=== PATIENT | male | born 1970 | race Caucasian/White ===

== ENCOUNTER → 2021-09-17 | Outpatient (CLI) | payer BC ==
--- NOTE | 2021-09-17 14:02 | CONS ---
CONSULTATION DATE OF SERVICE: 09/17/2021 This 50-year-old gentleman has been evaluated in [facility] for possible obstructive sleep apnea-hypopnea syndrome. HISTORY OF PRESENT ILLNESS/SLEEP-WAKE EVALUATION: Patient's usual sleep schedule on weekdays is from 8 p.m. to 4 a.m. and on weekends from 8 p.m. to 6 a.m. No problems with falling asleep. No TV in bedroom. Patient usually sleeps on the side position. He snores very loudly and according to his has episodes of stopped breathing during sleep. The patient wakes up from sleep up to 6 times with nocturia and dry mouth. In the morning the patient wakes up tired, has difficulties paying attention, falling asleep during the day, has episodes of irritability. [place] Sleepiness Scale increased to 13. No history of hypnagogic hallucinations, sleep paralysis or cataplexy. PAST MEDICAL HISTORY: Positive for acid reflux. MEDICATIONS: None. SOCIAL HISTORY: Negative for smoking. Alcohol consumption occasional. FAMILY HISTORY: Sleep apnea, snoring. REVIEW OF SYSTEMS: Multiple awakenings from sleep, sleepiness during the day, loud snoring. No fevers. No double vision. No recent chest pain. No shortness of breath. No abdominal pain. No bleeding episodes. No blood in the urine. No seizure episodes. PHYSICAL EXAMINATION: GENERAL: Pleasant gentleman without distress. VITAL SIGNS: BP 105/72, HR 82, RR 16, height 5 feet 11-1/2 inches, weight 306.4 pounds, body mass index 42.0, temperature 97.0, oxygen saturation at room air 98%. HEENT: PERRLA, EOMI, evaluation of oropharynx showed tongue protrudes midline. Extremely low position of soft palate; Mallampati IV. NECK: Supple, no JVD. Thyroid is not palpable. Neck is wide, 19-3/4 inches in circumference. LUNGS: Clear to percussion and to auscultation. Good air exchange. No wheezing or rhonchi. HEART: S1, S2 regular. No murmurs, gallops, or rubs. ABDOMEN: Obese. EXTREMITIES: No clubbing or cyanosis. SAFETY ANALYST: Awake, alert, and oriented X3. Cranial nerves 2 to 7 intact. There is no fasciculation or atrophy. noted. No focal deficits observed. IMPRESSION: 1. Loud snoring, witnessed episodes of stopped breathing during sleep, extremely low position of soft palate, Mallampati IV, wide neck, 19-3/4 inches in circumference; obstructive sleep apnea-hypopnea syndrome. 2. Sleepiness. [place] Sleepiness Scale increased to 13. 3. Obesity; BMI 42. 4. History of acid reflux. PLAN: 1. Home sleep apnea test for evaluation of patient's breathing during sleep. 2. CPAP/BiPAP titration if sleep study confirms obstructive sleep apnea-hypopnea syndrome. 3. Preferable position during sleep on the side. 4. No driving if patient feels any sleepiness. 5. I will see patient for follow up visit to explain results of testing and following plan. Thank you very much for referring this patient for consultation. Sincerely, Isra Linares MD, PhD, FAASM Diplomat of [place] [employer] Sleep Medicine Board of [place] [employer] Nuclear Scientist of [facility] [place] MMODL / IJN: [id number] /
== END ==
LOC: SLEEP 13:05
PROVIDERS: ATTEND Internal Medicine
DX: G47.33 Obstructive sleep apnea (adult) (pediatric) (principal); E66.9 Obesity, unspecified; K21.9 Gastro-esophageal reflux disease without esophagitis; Z68.41 Body mass index [BMI] 40.0-44.9, adult
CPT/HCPCS: 99202

== ENCOUNTER → 2022-01-01 | Outpatient (CLI) | payer BC ==
--- NOTE | 2022-01-01 16:26 | P.PN ---
Subjective DATE: [] FOLLOW UP VISIT. Patient with obstructive sleep apnea hypopnea syndrome return to sleep center for follow-up visit. Recently patient had sleep study which documented obstructive sleep apnea hypopnea syndrome. Patient was initiated on PAP therapy and today is first visit after treatment was started. I discussed results of sleep studies with patient in details. Patient was able to use PAP equipment every night for the whole night. The patient does not have significant problems with the mask, PAP pressure and humidification. [place] sleepiness scale is 0. After starting treatment with BiPAP the patient significantly improved his condition, no sleepiness during the day, sleeps well during the night. I checked information from PAP unit. PAP unit pressure maximal inspiratory pressure 18, minimal expiratory pressure at 10 cm of water cm H2O. Usage is 100 % for more then 4 hours, average 7.2 hours per night. Leak is 26.8 l/m, which is in acceptable range. Apnea Hypopnea Index is 2.4, which is normal. During physical exam: GENERAL: A pleasant patient without any distress. VITAL SIGNS: BP [], HR [], RR[] , weight[], temperature [], oxygen saturation at room air[] . HEENT: PERRLA, EOMI.low position of soft palate, Mallapati[] . NECK: Supple. No JVD. LUNGS: Clear to percussion and to auscultation. Good air exchange. No wheezing or rhonchi. HEART: S1, S2 regular. ABDOMEN: Soft and nontender.[] EXTREMITIES: No clubbing or cyanosis. NONPROFIT FINANCIAL CONTROLLER: Awake, alert, and oriented x3. No focal deficit. Impressions: 1. Obstructive sleep apnea-hypopnea syndrome in extremely severe range. Apnea hypopnea index during the sleep study 104 with oxygen desaturation to 56%. Patient demonstrated great compliance with treatment, benefiting from treatment. Normal respiration on BiPAP. 2. Obesity. 3. History of acid reflux. Plan: 1. Continue using PAP equipment every night for the whole night. 2. To change air filter at least 1-2 times per month. 3. PAP unit should stay lower then position of the head. 4. Advised patient to remove all remaining water from humidifier canister daily and make it dry after each usage. Refill canister with fresh distilled water before each usage. 5. Sleep hygiene with regular time in bed for at least 8 hours. 6. Precautions related to driving. No driving if feel any sleepiness. 7. I will maintain prescription for PAP supplies including mask, tube, filters. 8. Follow up visit in 6 months or earlier if patient has any problems. 9. Watching weight. Thank you very much for allowing me to participate in the management of your patient. Isra Linares MD, PhD, FAASM. Diplomat of [place] [employer] [employer], Sleep Medicine Board by [place] [employer] [facility] [place]
== END ==
LOC: SLEEP 15:57
PROVIDERS: ATTEND Internal Medicine
DX: G47.33 Obstructive sleep apnea (adult) (pediatric) (principal); G47.36 Sleep related hypoventilation in conditions classified elsewhere; Z99.89 Dependence on other enabling machines and devices; E66.9 Obesity, unspecified; Z87.19 Personal history of other diseases of the digestive system

== ENCOUNTER 2023-05-27 02:16 | Emergency (ER) | payer BC ==
[2023-05-27] MEDS ORDERED: KETOROLAC 15 MG/ML 1 ML VIAL IVP STA (04:13)
[2023-05-27] MEDS ORDERED: PANTOPRAZOLE 40 MG/10 ML VIAL IVP STA (04:13)
[2023-05-27] MEDS ORDERED: SODIUM CHLORIDE 0.9% 1,000 ML IV STA (04:13)
[2023-05-27] MEDS ORDERED: MORPHINE SULFATE 4 MG/ML SYRINGE IVP STA (04:16)
--- NOTE | 2023-05-27 04:19 | ED ---
Abdominal Pain HPI - General Source: patient, RN notes reviewed, old records reviewed Mode of arrival: ambulatory Limitations: no limitations - History of Present Illness MD Complaint: abdominal pain -: days(s) Location: diffuse Radiation: epigastric, suprapubic, bilateral flank Migration to: epigastric, suprapubic Severity: moderate Severity scale (1-10): 7 Quality: aching Consistency: constant, intermittent Worsens With: nothing Associated Symptoms: constipation Treatments Prior to Arrival: other (0) <Chris Martin - Last Filed: 05/27/23 05:20> <Yanira Schwab - Last Filed: 06/01/23 00:08> - General Chief Complaint: Abdominal Pain Stated Complaint: Abdominal Pain, Lowerback Pain Time Seen by Provider: 05/27/23 03:30 - History of Present Illness Initial Comments: This is a 52-year-old male to the emergency department for evaluation today. This patient presents today for evaluation regards to, pain significant abdominal pain with decreased bowel movements the last few days. No fevers mild nausea no vomiting. (Chris Martin) - Related Data Allergies Allergy/AdvReac Type Severity Reaction Status Date / Time No Known Allergies Allergy Verified 05/27/23 02:30 Review of Systems ROS Other: All systems not noted in ROS Statement are negative. <Chris Martin - Last Filed: 05/27/23 05:20> ROS Other: All systems not noted in ROS Statement are negative. <Yanira Schwab - Last Filed: 06/01/23 00:08> ROS Statement: Those systems with pertinent positive or pertinent negative responses have been documented in the HPI. Past Medical History Past Medical History: No Reported History History of Any Multi-Drug Resistant Organisms: None Reported Past Surgical History: No Surgical Hx Reported Past Psychological History: No Psychological Hx Reported Smoking Status: Never smoker Past Alcohol Use History: None Reported Past Drug Use History: None Reported <Chris Martin - Last Filed: 05/27/23 05:20> General Exam Limitations: no limitations General appearance: alert, in no apparent distress Head exam: Present: atraumatic, normocephalic, normal inspection Eye exam: Present: normal appearance, PERRL, EOMI. Absent: scleral icterus, conjunctival injection, periorbital swelling ENT exam: Present: normal exam, mucous membranes moist Neck exam: Present: normal inspection. Absent: tenderness, meningismus, lymphadenopathy Respiratory exam: Present: normal lung sounds bilaterally. Absent: respiratory distress, wheezes, rales, rhonchi, stridor Cardiovascular Exam: Present: regular rate, normal rhythm, normal heart sounds. Absent: systolic murmur, diastolic murmur, rubs, gallop, clicks GI/Abdominal exam: Present: soft, normal bowel sounds. Absent: distended, tenderness, guarding, rebound, rigid Extremities exam: Present: normal inspection, full ROM, normal capillary refill. Absent: tenderness, pedal edema, joint swelling, calf tenderness Back exam: Present: normal inspection Neurological exam: Present: alert, oriented X3, CN II-XII intact Psychiatric exam: Present: normal affect, normal mood Skin exam: Present: warm, dry, intact, normal color. Absent: rash <Chris Martin - Last Filed: 05/27/23 05:20> Course <Chris Martin - Last Filed: 05/27/23 05:20> Vital Signs 05/27/23 05/27/23 05/27/23 02:27 05:44 07:48 Temperature 98.1 F 98.8 F Pulse Rate 56 L 54 L 51 L Respiratory 18 18 17 Rate Blood Pressure 142/82 150/74 122/75 O2 Sat by Pulse 98 99 97 Oximetry - Reevaluation(s) Reevaluation #1: 05/27/23 05:20 Medical records reviewed (Chris Martin) Reevaluation #2: 05/27/23 05:20 Patient symptoms are improving (Chris Martin) Reevaluation #4: 05/27/23 05:20 Was pt. sent in by a medical professional or institution (, PA, ONLINE MARKETING MANAGER, urgent care, hospital, or retirement...) When possible be specific @ -no Did you speak to anyone other than the patient for history (EMS, parent, family, police, friend...)? What history was obtained from this source @ -no Did you review nursing and triage notes (agree or disagree)? Why? @ -agree Are old charts reviewed (outside hosp., previous admission, EMS record, old EKG, old radiological studies, urgent care reports/EKG's, retirement records)? Report findings @ -yes Differential Diagnosis (chest pain, altered mental status, abdominal pain women, abdominal pain men, vaginal bleeding, weakness, fever, dyspnea, syncope, headache, dizziness, GI bleed, back pain, seizure, CVA, palpatations, mental health, musculoskeletal)? @ -prior EKG interpreted by me (3pts min.). @ -yes X-rays interpreted by me (1pt min.). @ -yes CT interpreted by me (1pt min.). @ -no U/S interpreted by me (1pt. min.). @ -no What testing was considered but not performed or refused? (CT, X-rays, U/S, labs)? Why? @ -none What meds were considered but not given or refused? Why? @ -none Did you discuss the management of the patient with other professionals (professionals i.e. , PA, ONLINE MARKETING MANAGER, lab, RT, psych nurse, social service liaison, chute man, teacher, founder and chief technical officer, machine adjuster leader case trim)? Give summary @ -no Was smoking cessation discussed for >3mins.? @ -no Was critical care preformed (if so, how long)? @ -no Were there social determinants of health that impacted care today? How? (Homel essness, low income, unemployed, alcoholism, drug addiction, transportation, low edu. Level, literacy, decrease access to med. care, custodial, rehab)? @ -none Was there de-escalation of care discussed even if they declined (Discuss DNR or withdrawal of care, Hospice)? DNR status @ -no What co-morbidities impacted this encounter? (DM, HTN, Smoking, COPD, CAD, Cancer, CVA, ARF, Chemo, Hep., AIDS, mental health diagnosis, sleep apnea, morbid obesity)? @ -none Was patient admitted / discharged? Hospital course, mention meds given and route, prescriptions, significant lab abnormalities, going to OR and other pertinent info. @ - Undiagnosed new problem with uncertain prognosis? @ -no Drug Therapy requiring intensive monitoring for toxicity (Heparin, Nitro, Insulin, Cardizem)? @ -no Were any procedures done? @ -no Diagnosis/symptom? @ - Acute, or Chronic, or Acute on Chronic? @ -Acute Uncomplicated (without systemic symptoms) or Complicated (systemic symptoms)? @ -Complicated Side effects of treatment? @ -no Exacerbation, Progression, or Severe Exacerbation? @ -exacerbation Poses a threat to life or bodily function? How? (Chest pain, USA, IA, pneumonia, PE, COPD, DKA, ARF, appy, cholecystitis, CVA, Diverticulitis, Homicidal, Suicidal, threat to staff... and all critical care pts) @ -yes (Chris Martin) Reevaluation #5: 05/27/23 05:20 Differential Abdominal Pain Men: Appendicitis, cholecystitis, diverticulosis, ischemic bowel, pancreatitis, hepatitis, UTI, gastroenteritis, AAA, incarcerated hernia, bowel obstruction, constipation, inflammatory bowel, hepatitis, peptic ulcer disease, splenic infarction, perforated viscus, testicular torsion, this is not meant to be an all-inclusive list (Chris Martin) Medical Decision Making - Lab Data Result diagrams: 05/27/23 04:30 05/27/23 04:30 <Chris Martin - Last Filed: 05/27/23 05:20> - Lab Data Result diagrams: 05/27/23 04:30 05/27/23 04:30 <Yanira Schwab - Last Filed: 06/01/23 00:08> - Medical Decision Making Was patient admitted / discharged? Hospital course, mention meds given and route, prescriptions, significant lab abnormalities, going to OR and other pertinent info. @ -Patient signed out to me from Dr. Martin. Patient is pain-free upon my evaluation. CT demonstrates lew mesentery and constipation. I discussed the results with Dr. Daniel. He states that the patient is stable for discharge home. He will follow up with him in office. She was given magnesium citrate in order to help move his bowels. He has any new or worsening symptoms he should return sooner. Patient agreeable to the plan was discharged in stable condition Undiagnosed new problem with uncertain prognosis? @ -No Drug Therapy requiring intensive monitoring for toxicity (Heparin, Nitro, Insulin, Cardizem)? @ -No Were any procedures done? @ -No Diagnosis/symptom? @ -Acute abdominal pain, acute constipation, possible mesenteric adenitis Acute, or Chronic, or Acute on Chronic? @ -Acute Uncomplicated (without systemic symptoms) or Complicated (systemic symptoms)? @ -Complicated Side effects of treatment? @ -No Exacerbation, Progression, or Severe Exacerbation? @ -No Poses a threat to life or bodily function? How? (Chest pain, USA, IA, pneumonia, PE, COPD, DKA, ARF, appy, cholecystitis, CVA, Diverticulitis, Homicidal, Suicidal, threat to staff... and all critical care pts) @ -No (Yanira Schwab) - Lab Data Lab Results 05/27/23 05/27/23 05/27/23 Range/Units 04:30 04:30 04:30 WBC 10.9 H (3.8-10.6) k/uL RBC 5.01 (4.30-5.90) m/uL Hgb 15.4 (13.0-17.5) gm/dL Hct 45.9 (39.0-53.0) % MCV 91.7 (80.0-100.0) fL MCH 30.7 (25.0-35.0) pg MCHC 33.5 (31.0-37.0) g/dL RDW 12.9 (11.5-15.5) % Plt Count 325 (150-450) k/uL MPV 7.4 Neutrophils % 67 % Lymphocytes % 23 % Monocytes % 5 % Eosinophils % 2 % Basophils % 1 % Neutrophils # 7.3 (1.3-7.7) k/uL Lymphocytes # 2.5 (1.0-4.8) k/uL Monocytes # 0.6 (0-1.0) k/uL Eosinophils # 0.3 (0-0.7) k/uL Basophils # 0.1 (0-0.2) k/uL Sodium 138 (137-145) mmol/L Potassium 4.3 (3.5-5.1) mmol/L Chloride 104 (98-107) mmol/L Carbon Dioxide 25 (22-30) mmol/L Anion Gap 9 mmol/L BUN 16 (9-20) mg/dL Creatinine 0.84 (0.66-1.25) mg/dL Est GFR (CKD-EPI)AfAm >90 (>60 ml/min/1.73 sqM) Est GFR (CKD-EPI)NonAf >90 (>60 ml/min/1.73 sqM) Glucose 103 H (74-99) mg/dL Plasma Lactic Acid Angelo (0.7-2.0) mmol/L Calcium 9.2 (8.4-10.2) mg/dL Total Bilirubin 0.5 (0.2-1.3) mg/dL AST 29 (17-59) U/L ALT 24 (4-49) U/L Alkaline Phosphatase 57 (38-126) U/L Total Protein 7.5 (6.3-8.2) g/dL Albumin 4.2 (3.5-5.0) g/dL Amylase 51 (30-110) U/L Lipase 62 (23-300) U/L Urine Color Light Yellow Urine Appearance Clear (Clear) Urine pH 5.5 (5.0-8.0) Ur Specific [place] 1.023 (1.001-1.035) Urine Protein Negative (Negative) Urine Glucose (UA) Negative (Negative) Urine Ketones Negative (Negative) Urine Blood Negative (Negative) Urine Nitrite Negative (Negative) Urine Bilirubin Negative (Negative) Urine Urobilinogen <2.0 (<2.0) mg/dL Ur Leukocyte Esterase Negative (Negative) 05/27/23 Range/Units 04:30 WBC (3.8-10.6) k/uL RBC (4.30-5.90) m/uL Hgb (13.0-17.5) gm/dL Hct (39.0-53.0) % MCV (80.0-100.0) fL MCH (25.0-35.0) pg MCHC (31.0-37.0) g/dL RDW (11.5-15.5) % Plt Count (150-450) k/uL MPV Neutrophils % % Lymphocytes % % Monocytes % % Eosinophils % % Basophils % % Neutrophils # (1.3-7.7) k/uL Lymphocytes # (1.0-4.8) k/uL Monocytes # (0-1.0) k/uL Eosinophils # (0-0.7) k/uL Basophils # (0-0.2) k/uL Sodium (137-145) mmol/L Potassium (3.5-5.1) mmol/L Chloride (98-107) mmol/L Carbon Dioxide (22-30) mmol/L Anion Gap mmol/L BUN (9-20) mg/dL Creatinine (0.66-1.25) mg/dL Est GFR (CKD-EPI)AfAm (>60 ml/min/1.73 sqM) Est GFR (CKD-EPI)NonAf (>60 ml/min/1.73 sqM) Glucose (74-99) mg/dL Plasma Lactic Acid Angelo 1.0 (0.7-2.0) mmol/L Calcium (8.4-10.2) mg/dL Total Bilirubin (0.2-1.3) mg/dL AST (17-59) U/L ALT (4-49) U/L Alkaline Phosphatase (38-126) U/L Total Protein (6.3-8.2) g/dL Albumin (3.5-5.0) g/dL Amylase (30-110) U/L Lipase (23-300) U/L Urine Color Urine Appearance (Clear) Urine pH (5.0-8.0) Ur Specific [place] (1.001-1.035) Urine Protein (Negative) Urine Glucose (UA) (Negative) Urine Ketones (Negative) Urine Blood (Negative) Urine Nitrite (Negative) Urine Bilirubin (Negative) Urine Urobilinogen (<2.0) mg/dL Ur Leukocyte Esterase (Negative) Disposition <Chris Martin - Last Filed: 05/27/23 05:20> Is patient prescribed a controlled substance at d/c from ED?: No Time of Disposition: 08:24 <Yanira Schwab - Last Filed: 06/01/23 00:08> Clinical Impression: Abdominal pain, Constipation, Hiatal hernia, Diverticula, colon Disposition: HOME SELF-CARE Condition: Stable Instructions (If sedation given, give patient instructions): Abdominal Pain (ED) Additional Instructions: I did discuss your CAT scan findings with Dr. Daniel. Please follow-up with him in office in regards to those findings. Drink half the bottle of the magnesium citrate. If you do not have a bowel movement within 4 hours, drink the second half. Return for any new or worsening symptoms Referrals: None,Stated [Primary Care Provider] - 1-2 days Raymundo Daniel MD [Medical Doctor] - 1-2 days
[2023-05-27 04:39] LABS: Basophils # (A) 0.1 k/uL (0-0.2); Basophils % (A) 1 %; Eosinophils # (A) 0.3 k/uL (0-0.7); Eosinophils % (A) 2 %; HCT 45.9 % (39.0-53.0); HGB 15.4 gm/dL (13.0-17.5); Lymphocytes # (A) 2.5 k/uL (1.0-4.8); Lymphocytes % (A) 23 %; MCH 30.7 pg (25.0-35.0); MCHC 33.5 g/dL (31.0-37.0); MCV 91.7 fL (80.0-100.0); Mean Platelet Volume 7.4; Monocytes # (A) 0.6 k/uL (0-1.0); Monocytes % (A) 5 %; Neutrophils # (A) 7.3 k/uL (1.3-7.7); Neutrophils % (A) 67 %; Platelet Count 325 k/uL (150-450); RBC 5.01 m/uL (4.30-5.90); RDW 12.9 % (11.5-15.5); WBC 10.9 k/uL (3.8-10.6)
[2023-05-27 04:47] LABS: ALT 24 U/L (4-49); AST 29 U/L (17-59); African American GFR (CKD) >90 (>60 ml/min/1.73 sqM); Albumin 4.2 g/dL (3.5-5.0); Alkaline Phosphatase 57 U/L (38-126); Amylase 51 U/L (30-110); Anion Gap 9 mmol/L; Blood Urea Nitrogen 16 mg/dL (9-20); Calcium 9.2 mg/dL (8.4-10.2); Carbon Dioxide 25 mmol/L (22-30); Chloride 104 mmol/L (98-107); Glucose 103 mg/dL (74-99); Lipase 62 U/L (23-300); Non-African American GFR(CKD) >90 (>60 ml/min/1.73 sqM); Potassium 4.3 mmol/L (3.5-5.1); Sodium 138 mmol/L (137-145); Total Bilirubin 0.5 mg/dL (0.2-1.3); Total Protein 7.5 g/dL (6.3-8.2)
[2023-05-27 05:07] LABS: Appearance,Urine Clear (Clear); Bilirubin,Urine Negative (Negative); Blood,Urine Negative (Negative); Color,Urine Light Yellow; Glucose,Urine (UA) Negative (Negative); Ketones,Urine Negative (Negative); Leukocyte Esterase,Urine Negative (Negative); Nitrite,Urine Negative (Negative); PH, Urine 5.5 (5.0-8.0); Protein,Urine Negative (Negative); Specific Gravity,Urine 1.023 (1.001-1.035); Urobilinogen,Urine <2.0 mg/dL (<2.0)
--- NOTE | 2023-05-27 07:20 | XR ---
EXAMINATION TYPE: XR KUB DATE OF EXAM: 05/27/2023 2:45 AM CLINICAL INDICATION:Male, 52 years old with history of constipation; COMPARISON: None. TECHNIQUE: One radiographic view of the abdomen was obtained. FINDINGS: Mild to moderate amount of stool throughout the colon. The bowel gas pattern is nonspecific without dilated loops of small or large bowel. There is no evidence for organomegaly or pneumoperito neum. The osseous structures are intact. No abnormal calcifications are present. Fecal material and gas are demonstrated throughout the colon and rectum. Degeneration changes throughout the spine with scoliosis. IMPRESSION: [id number] stool burden: Nonspecific bowel gas pattern without radiographic evidence for acute process.
--- NOTE | 2023-05-27 07:32 | CT ---
EXAMINATION TYPE: CT abdomen pelvis w con CT DLP: 2482 mGycm, Automated exposure control for dose reduction was used. DATE OF EXAM: 05/27/2023 4:55 AM COMPARISON: KUB 05/27/2023 CLINICAL INDICATION:Male, 52 years old with history of abdominal pain; TECHNIQUE: Axial CT of the ;CT abdomen pelvis w con;Sagittal and coronal reformats were created on a separate workstation. Contrast used: 100 cc Isovue-300 (none if empty) Oral contrast used: (none if empty) FINDINGS: LOWER CHEST: Atherosclerosis of the coronary arteries. The ABDOMEN LIVER: Unremarkable GALLBLADDER AND BILE DUCTS: Unremarkable. PANCREAS: Unremarkable. SPLEEN: Unremarkable. ADRENAL GLANDS: Unremarkable. KIDNEYS AND URETERS: No evidence of hydronephrosis or renal calculus. The ureters are unremarkable. PELVIS BLADDER: Unremarkable REPRODUCTIVE: Prostate is enlarged in size measuring 5.0 cm in transverse dimension. ABDOMEN & PELVIS STOMACH AND BOWEL: Small hiatal hernia, duodenum is unremarkable No evidence of bowel obstruction. PERITONEUM/RETROPERITONEUM: No evidence of pneumoperitoneum or free fluid. Nonspecific Lew mesenter y. VASCULATURE: Mild atherosclerotic calcifications are present throughout the abdominal aorta and its b ranches. No evidence of aortic aneurysm. MUSCULOSKELETAL: No acute osseous abnormalities. Mild disc degeneration changes are present throughou t the thoracolumbar spine. LYMPH NODES: No gross evidence for lymphadenopathy. SOFT TISSUE/ABDOMINAL WALL: Fat-containing umbilical hernia. IMPRESSION: 1. No evidence for acute abdominal process. There is a lew mesentery which is nonspecific and coul d represent sclerosing mesentery redness. 2. Scattered colonic diverticula. 3. Prostatomegaly correlate with serum PSA 4. Small hiatal hernia.
[2023-05-27 07:57] VITALS: BP 122/75; PULSE 51; RESP 17; TEMP 98.8
[2023-05-27] MEDS ORDERED: MAGNESIUM CITRATE 296 ML BOTTLE PO ONE (08:23)
== END 2023-05-27 08:42 | disposition home or self-care (01) ==
LOC: EC 02:16
DX: K59.00 Constipation, unspecified (principal); K44.9 Diaphragmatic hernia without obstruction or gangrene; K57.30 Diverticulosis of large intestine without perforation or abscess without bleeding
CPT/HCPCS: 36415; 80053; 82150; 83605; 83690; 85025; 81003; 74018; 74177; 99285; 96374; 96375; 96361 ×2; J1885; C9113; Q9967

== ENCOUNTER 2023-08-24 07:53 | Day surgery (SDC) | payer BC ==
[~2023-08-24 07:53] MED LIST: LIDOCAINE 1% (10MG/ML) FOR IV START INTRADERMA PRN
[2023-08-24] MEDS: LACTATED RINGERS 1,000 ML IV SCH (08:18)
[2023-08-24 08:35] VITALS: RESP 16; TEMP 96.5
[2023-08-24] MEDS ORDERED: KETAMINE HCL IN 0.9 % NACL 50 MG/5 ML SYRINGE ONE (08:40)
[2023-08-24] MEDS ORDERED: LIDOCAINE 1% INJ 10MG/ML (20 ML MDV) ONE (08:40)
[2023-08-24] MEDS ORDERED: PROPOFOL 10 MG/ML 20 ML VIAL IV ONE (08:40)
[2023-08-24] MEDS ORDERED: MIDAZOLAM 2 MG/2 ML VIAL ONE (08:40)
--- NOTE | 2023-08-24 08:45 | P.GSHP ---
History of Present Illness H&P Date: 08/24/23 Chief Complaint: GERD, screening 52-year-old male here for upper and lower endoscopy. Patient with history of Paiz's esophagus. Only takes antiacids as needed now. Last upper endoscopy 5 to 10 years ago. Never had a colonoscopy. Thinks his mother had colon cancer. No bowel complaints. Past Medical History Past Medical History: No Reported History, Sleep Apnea/CPAP/BIPAP Additional Past Medical History / Comment(s): uses bi pap History of Any Multi-Drug Resistant Organisms: None Reported Past Surgical History: No Surgical Hx Reported Past Anesthesia/Blood Transfusion Reactions: No Reported Reaction Smoking Status: Never smoker - Past Family History Mother Family Medical History: Cancer Additional Family Medical History / Comment(s): colon Medications and Allergies Home Medications Medication Instructions Recorded Confirmed Type Liraglutide [Saxenda] 1 injection INJ DAILY 08/18/23 08/18/23 History Pantoprazole [Protonix] 40 mg PO DAILY 08/18/23 08/18/23 History Allergies Allergy/AdvReac Type Severity Reaction Status Date / Time No Known Allergies Allergy Verified 08/24/23 08:05 Surgical - Exam Vital Signs Temp Pulse Resp BP Pulse Ox 96.5 F L 58 L 16 124/59 97 08/24/23 08:09 08/24/23 08:09 08/24/23 08:09 08/24/23 08:09 08/24/23 08:09 Physical exam: General: Well-developed, well-nourished HEENT: Normocephalic, sclerae nonicteric Abdomen: Nontender, nondistended Extremities: No edema Neuro: Alert and oriented Assessment and Plan (1) Barretts esophagus Narrative/Plan: Will proceed with upper and lower endoscopy at this time. Current Visit: Yes Status: Acute Code(s): K22.70 - PAIZ'S ESOPHAGUS WITHOUT DYSPLASIA SNOMED Code(s): 657590363
--- NOTE | 2023-08-24 09:03 | P.PCN ---
Date of Procedure: 08/24/23 Procedure(s) Performed: PREOPERATIVE DIAGNOSIS: Crane's, screening, family history of colon cancer POSTOPERATIVE DIAGNOSIS: Gastritis, Crane's esophagus, hiatal hernia, diverticulosis PROCEDURE: 1. EGD with biopsy 2. Colonoscopy [place]HES[place]: [facility] [place] SURGEON: Raymundo Daniel M.D. SPECIMENS: Antrum, Crane's esophagus ENDOSCOPIC PROCEDURE: The patient was on the endoscopy table in the left decubitus position. The Olympus gastroscope was inserted into the oropharynx and passed under direct visualization to the region of the third portion of the duodenum. From that point the scope was slowly withdrawn inspecting all surfaces carefully. There were no neoplastic inflammatory or polypoid lesions throughout the duodenum. The pylorus was widely patent. The stomach was carefully inspected. There was mild gastritis present. A biopsy of the antrum took place to rule out H. pylori. Retroflexion revealed a moderate-sized hiatal hernia. The GE junction was present 2 cm above the diaphragmatic hiatus. The distal esophagus was inspected and had noninflammatory changes of Crane's esophagus for a length of approximately 7 cm. Multiple biopsies circumferentially were taken. There was no nodularity or neoplastic changes noted. The proximal esophagus appeared normal. The patient was kept on the endoscopy table in the left decubitus position. The Olympus colonoscope was inserted into the anus and passed under direct visualization to the base of the cecum. The appendiceal orifice was visualized. From that point the scope was slowly withdrawn inspecting all surfaces carefully. There were no neoplastic inflammatory or polypoid lesions throughout the cecum, ascending, transverse, descending, sigmoid and rectum. There was mild scattered diverticulosis noted. Digital rectal examination was normal. The patient was taken to the recovery room in stable condition per anesthesia guidelines. RECOMMENDATIONS: Resume diet. Await biopsy results. Continue antiacids indefinitely given the long length of Crane's esophagus. Repeat EGD 3 years.
[2023-08-24 09:36] VITALS: BP 129/71; PULSE 59
== END 2023-08-24 10:00 | disposition home or self-care (01) ==
LOC: ORWHC2ENDO 07:53
PROVIDERS: ATTEND Surgery
DX: Z12.11 Encounter for screening for malignant neoplasm of colon (principal); K31.89 Other diseases of stomach and duodenum; K31.A19 Gastric intestinal metaplasia without dysplasia, unspecified site; K29.50 Unspecified chronic gastritis without bleeding; K57.30 Diverticulosis of large intestine without perforation or abscess without bleeding; K22.70 Barrett's esophagus without dysplasia; K44.9 Diaphragmatic hernia without obstruction or gangrene; K21.9 Gastro-esophageal reflux disease without esophagitis; G47.33 Obstructive sleep apnea (adult) (pediatric); E66.01 Morbid (severe) obesity due to excess calories; Z79.899 Other long term (current) drug therapy; Z80.0 Family history of malignant neoplasm of digestive organs
CPT/HCPCS: 88305; 45378; 43239; J2250; J2001; J2704